=== PATIENT | female | born 1995 | race African-American/Black ===

== ENCOUNTER 2017-06-07 23:29 | Emergency (ER) | payer MEDICAID ==
[2017-06-08 02:20] VITALS: BP 131/73
== END 2017-06-08 02:20 | disposition home or self-care (01) ==
LOC: ED 23:29
DX: S90.32XA Contusion of left foot, initial encounter (principal); X50.1XXA Overexertion from prolonged static or awkward postures, initial encounter; Y93.89 Activity, other specified; Y99.8 Other external cause status; Y92.89 Other specified places as the place of occurrence of the external cause
CPT/HCPCS: 90715; Q0092

== ENCOUNTER 2017-06-13 08:12 | Emergency (ER) | payer MEDICAID ==
[2017-06-13 08:17] VITALS: BP 135/91
== END 2017-06-13 09:05 | disposition home or self-care (01) ==
LOC: ED 08:12
DX: S90.812A Abrasion, left foot, initial encounter (principal); R11.10 Vomiting, unspecified; R10.9 Unspecified abdominal pain; R50.9 Fever, unspecified; Z79.1 Long term (current) use of non-steroidal anti-inflammatories (NSAID); X58.XXXA Exposure to other specified factors, initial encounter; Y93.89 Activity, other specified; Y92.89 Other specified places as the place of occurrence of the external cause; Y99.8 Other external cause status

== ENCOUNTER 2017-06-20 08:13 | Emergency (ER) | payer MEDICAID ==
[2017-06-20 08:15] VITALS: BP 159/99
== END 2017-06-20 08:34 | disposition home or self-care (01) ==
LOC: ED 08:13
DX: Z04.2 Encounter for examination and observation following work accident (principal); R03.0 Elevated blood-pressure reading, without diagnosis of hypertension